=== PATIENT | male | born 2000 | race Two or more races ===

== ENCOUNTER 2024-11-10 12:47 | Emergency (ER) | payer MEDICAID ==
[~2024-11-10] VITALS: Ht 170.2 cm; Wt 68.9 kg
[2024-11-10 12:48] VITALS: BP 132/70; PULSE 93; RESP 15; O2SAT 98
--- NOTE | 2024-11-10 14:01 | Physician Documentation ---
History of Present Illness ~ Chief Complaint: See Chief Complaint Stated Complaint: ALLERGIES Time Seen by MD: 13:06 HPI Patient is seen today with complaints of seasonal allergies. Patient states he has been having severe allergies with itchy eyes and runny nose without any relief from Zyrtec or Claritin. Patient denies any sinus pressure or fever or chills or cough or sore throat. He has no other concern or complaint at this time. Medication Reconciliation Allergies: Uncoded Allergies: LORATIDINE (Allergy, Unknown, 11/10/24) Review of Systems Constitutional: Denies: chills, fever, weakness Eyes: Denies: pain, blurred vision ENT: Denies: ear pain, nose pain, throat pain, mouth pain Respiratory: Denies: cough, shortness of breath Cardiovascular: Denies: chest pain, palpitations Gastrointestinal: Denies: abdominal pain, nausea, vomiting Genitourinary: Denies: burning, dysuria Male Genitalia: Denies: penile discharge, testicular pain Neurological: Denies: headache, dizziness Musculoskeletal: Denies: pain, swelling Integumentary: Denies: rash, lesions Allergic/Immunologic: Denies: hives, itching Hematologic/Lymphatic: Denies: no symptoms reported Psychiatric: Denies: depression, anxiety Physical Exam Vital Signs: Temperature: 97.5, Source: Temporal, Heart Rate: 93, Respiratory Rate: 15, BP: 132/70, Pulse Oximetry: 98, Weight: 68.900 Physical Exam General: Awake and Alert, no acute distress. HEENT: Patient has no sinus tenderness to palpation on exam. Patient does have clear nasal discharge and red itchy eyes. Conjunctiva pink, Sclera injected, Mucus Membranes moist. Neck: Supple without masses and tenderness. Resp: Unlabored. Lungs clear to auscultation bilaterally. Heart: Regular Rate and rhythm, normal S1 and S2 without murmur, rub or gallop. Extremities: No cyanosis,clubbing or edema. Skin: Warm and Dry. Progress Results/Orders Results/Orders Vital Signs 11/10/24 12:48 Temp 97.5 Pulse 93 Resp 15 B/P (MAP) 132/70 Pulse Ox 98 Medical Decision Making Findings Patient is seen today with complaints of seasonal allergies. Patient states he has been having severe allergies with itchy eyes and runny nose without any relief from Zyrtec or Claritin. Patient denies any sinus pressure or fever or chills or cough or sore throat. He has no other concern or complaint at this time. Patient was given injection of Decadron 10 mg IM in the ED today. Patient will continue Claritin and Zyrtec as needed. Return to ED with any worsening, concerning or changing symptoms. He will follow up with primary care in 2-5 days if no better as needed sooner. Departure Disposition: HOME / SELF CARE / HOMELESS Impression: Primary Impression: Seasonal allergic rhinitis Qualified Codes: J30.2 - Other seasonal allergic rhinitis Condition: Improved Discharge Instructions: Allergic Rhinitis, Adult, [id number] Additional Instructions: Patient was given injection of Decadron 10 mg IM in the ED today. Patient will continue Claritin and Zyrtec as needed. Return to ED with any worsening, co ncerning or changing symptoms. He will follow up with primary care in 2-5 days if no better as needed sooner. Referrals: NO PRIMARY CARE PROVIDER (PCP) Signature Scribe Signature: No scribe Attestation: No scribe CESILIA MONTES PAC Nov 10, 2024 14:01
[2024-11-10] MEDS: dexamethasone sod phosphate 10mg/ml inj IM STA (14:14)
[2024-11-10 14:18] VITALS: TEMP 97.5
== END 2024-11-10 14:22 | disposition home or self-care (01) ==
LOC: ER 12:48
DX: J30.2 Other seasonal allergic rhinitis (principal)
CPT/HCPCS: 96372; 99283; J1100

== ENCOUNTER 2025-05-01 09:10 | Emergency (ER) | payer MEDICAID ==
[~2025-05-01] VITALS: Ht 152.4 cm; Wt 90.6 kg
[2025-05-01 09:29] VITALS: BP 132/75; PULSE 92; RESP 18; O2SAT 98
[2025-05-01] MEDS ORDERED: HYDR25SU48 RC (10:39)
--- NOTE | 2025-05-01 10:41 | Physician Documentation ---
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 Patient states that he has rectal pain that started a few days ago. He has diagnosed himself with having internal hemorrhoids. He denied sticking any foreign body in his rectum. He states he has never had this before but that his symptoms came on after he had a large bowel movement a few days ago. He has been applying topical hydrocortisone cream for hemorrhoids to the area without relief and he is hoping he can get a prescription for hydrocortisone suppositories. He also is requesting an allergy injection which apparently he got here six months ago and he states his allergy symptoms, runny nose, itchy eyes and watery eyes as well as scratchy throat, resolved for six months. He states he has tried [id number] allergy medication without relief. He does not have a primary care provider. No shortness of breath. Medication Reconciliation Allergies: Uncoded Allergies: LORATIDINE (Allergy, Unknown, 11/10/24) Scheduled Hydrocortisone Acetate* (Anucort-Hc Supp*), 1 SUPP RC Q12H Past Medical History Past Medical History: No Pertinent History Past Surgical History: noncontributory Drug Use: none Lives In: Home Occupation: employed Review of Systems All Other Systems at this time: Reviewed and Negative Physical Exam Physical Exam Vital Signs: Temperature: 98.2, Source: Oral, Heart Rate: 92, Respiratory Rate: 18, BP: 132/75, Pulse Oximetry: 98, Weight: 90.600 Physical Exam General Appearance: Alert, WD/WN. NAD. HEENT: NCAT, PERRL, EOMI. Bulbar conjunctiva clear no increased injection possibly some increased tearing, no rhinorrhea observe, posterior pharyngeal wall normal. Neck: Supple, trachea midline. No cervical lymphadenopathy Cardiovascular: RRR. No m/r/g. Lungs: CTAB. Breathing unlabored RECTAL: Inspection of anus and perianal area normal no fissures, external hemorrhoids or prolapsing internal hemorrhoids. Extremities: Normal inspection. No edema. Skin: Warm/dry, normal color Neurological: Alert and oriented x4, normal gait. Psychiatric: Affect congruent with mood. Progress Results/Orders Results/Orders Completed Orders - SAIRA CASAS Triamcinolone Acet 40mg/Ml Inj (Kenalog- (05/01/25 10:30) Vital Signs 05/01/25 09:29 Temp 98.2 Pulse 92 Resp 18 B/P (MAP) 132/75 Pulse Ox 98 Medical Decision Making Additional information obtaine: N/A Findings n/a Differential Diagnosis ddx: Hemorrhoids, foreign body, mass, anal fissure, perirectal abscess, constipation, diarrhea Departure Time of Disposition: 10:41 Disposition: 01 HOME / SELF CARE / HOMELESS Impression: Primary Impression: Rectal pain Additional Impression: Allergic rhinitis Qualified Codes: J30.9 - Allergic rhinitis, unspecified Condition: Stable Discharge Instructions: Hemorrhoids, [id number] Additional Instructions: DISCUSSED SUPPOSITORIES, F/U WITH PRIMARY CARE PROVIDER. RECOMMEND COLONOSCOPY IF THIS PERSISTS WHICH YOUR PRIMARY CARE PROVIDER WOULD ORDER. DISCUSSED FOLLOW UP WITH PCP ABOUT YOUR ALLERGIC RHINITIS COMING TO ER EVERY 6MONTHS FOR "ALLERGY INJECTIONS" IS NOT APPROPRIATE MANAGEMENT FOR YOUR ALLERGIES. THIS NEEDS TO BE MANAGED OUTPATIENT. Referrals: NO PRIMARY CARE PROVIDER (PCP) Prescriptions Hydrocortisone Acetate* (Anucort-Hc Supp*) 25 Mg Supp 1 SUPP RC Q12H for 14 Days, #28 SUPP Prov: SAIRA CASAS 05/01/25 Education Educated: Patient Educated regarding: diagnosis, treatment, need for follow up Signature Scribe Signature: X Attestation: SAIRA CARR May 01, 2025 10:41
[2025-05-01] MEDS: triamcinolone acetonide 40mg/ml inj IM ONE (10:56)
[2025-05-01 11:01] VITALS: TEMP 98.2
== END 2025-05-01 11:02 | disposition home or self-care (01) ==
LOC: ER 09:10
DX: K62.89 Other specified diseases of anus and rectum (principal); J30.9 Allergic rhinitis, unspecified
CPT/HCPCS: 96372; 99283; J3301